=== PATIENT | female | born 1955 | race Caucasian/White ===

== ENCOUNTER 2018-05-25 22:36 | Emergency (ER) | payer OTHER ==
[~2018-05-25] VITALS: Ht 157.5 cm; Wt 93.0 kg
[2018-05-25] MEDS ORDERED: LIPITOR10 MG (22:44)
[2018-05-25] MEDS ORDERED: LISINOPRIL10 MG (22:45)
[2018-05-25 23:04] LABS: ABSOLUTE BASOPHILS 0.1 thou/uL (0.0-0.2); ABSOLUTE EOSINOPHILS 0.3 thou/uL (0.0-0.7); ABSOLUTE LYMPHOCYTES 2.2 thou/uL (0.8-5.3); ABSOLUTE MONOCYTES 0.6 thou/uL (0.0-1.2); ABSOLUTE NEUTROPHILS 5.7 thou/uL (1.6-8.1); BASOPHILS 1.2 %; EOSINOPHILS 3.6 %; HEMATOCRIT 41.6 % (37.0-47.0); HEMOGLOBIN 13.4 gm/dL (12.0-15.0); LYMPHOCYTES 24.5 %; MCHC 32.2 g/dL (28.0-37.0); MCV 80.8 fL (80.0-100.0); MONOCYTES 7.1 %; MPV 8.2 fl. (7.2-11.1); NUCLEATED RBCS 0 /100WBC; PLATELET COUNT* 292 thou/uL (150-400); POLYS 63.6 %; RBC 5.15 mil/uL (4.20-5.00); RDW-CV 15.1 % (10.5-14.5)
[2018-05-25 23:10] LABS: CALCIUM 8.8 mg/dL (8.5-10.1); POTASSIUM 3.8 mmol/L (3.5-5.1)
[2018-05-25 23:12] LABS: URIC ACID* 4.4 mg/dL (2.6-7.2)
[2018-05-25] MEDS ORDERED: IBUPROFEN 800800 M1 PO (23:26)
[2018-05-25] MEDS ORDERED: COLCHICINE0.6 M1 PO (23:26)
[2018-05-25 23:35] VITALS: BP 145/76
== END 2018-05-25 23:36 | disposition home or self-care (01) ==
LOC: M.ERS 22:36
PROVIDERS: Nurse Practitioner Family
DX: M10.071 Idiopathic gout, right ankle and foot (principal); E78.00 Pure hypercholesterolemia, unspecified; Z88.2 Allergy status to sulfonamides; Z91.040 Latex allergy status